=== PATIENT | male | born 1985 | race Two or more races ===

== ENCOUNTER 2023-10-22 12:18 | Emergency (ER) | payer SELFPAY ==
[2023-10-22] MEDS: Lidocaine 1% 10 ML MDV INJECT ONE (12:40)
== END 2023-10-22 12:53 | disposition home or self-care (01) ==
LOC: VM.ED 12:18
DX: S51.812A Laceration without foreign body of left forearm, initial encounter (principal); W26.8XXA Contact with other sharp object(s), not elsewhere classified, initial encounter
CPT/HCPCS: 12002; 99282; 99283; J3490